=== PATIENT | female | born 1950 | race Caucasian/White ===

== ENCOUNTER 2021-04-15 06:06 | Day surgery (SDC) | payer MEDICARE ==
[2021-04-08 11:10] LABS: BASOPHILS % (AUTO) 0.7 % (0-1); EOSINOPHILS # (AUTO) 0.1 X10'3 (0-0.9); EOSINOPHILS % (AUTO) 2.1 % (0-6); LYMPHOCYTES # (AUTO) 1.4 X10'3 (1.1-4.8); LYMPHOCYTES % (AUTO) 34.4 % (21-51); MEAN CORPUSCULAR HEMOGLOBIN 28.7 PG (27.0-31.0); MEAN CORPUSCULAR HGB CONC 33.2 g/dL (33.0-36.5); MEAN CORPUSCULAR VOLUME 86.6 FL (78-98); MEAN PLATELET VOLUME 7.7 FL (7.4-10.4); MONOCYTES # (AUTO) 0.4 X10'3 (0-0.9); MONOCYTES % (AUTO) 9.3 % (2-12); NEUTROPHILS # (AUTO) 2.2 X10'3 (1.8-7.7); NEUTROPHILS % (AUTO) 53.5 % (42-75); PRE OP HEMATOCRIT 41.9 % (35.0-45.0); PRE OP HEMOGLOBIN 13.9 g/dL (12.0-16.0); PRE OP PLATELET COUNT 339 X10'3 (140-440); RED BLOOD COUNT 4.84 X10'6 (4.20-5.60); RED CELL DISTRIBUTION WIDTH 14.3 % (11.5-14.5)
[2021-04-08 12:00] LABS: ALANINE AMINOTRANSFERASE 31 U/L (12-78); ALBUMIN/GLOBULIN RATIO 1.5 (1.1-1.5); ALKALINE PHOSPHATASE 78 IU/L (46-116); ANION GAP 10 (8-16); ASPARTATE AMINO TRANSFERASE 18 U/L (10-37); BILIRUBIN,TOTAL 0.3 MG/DL (0.1-1.0); BLOOD UREA NITROGEN 11 MG/DL (7-18); CALCIUM 9.3 MG/DL (8.5-10.1); CHLORIDE 107 MMOL/L (99-107); CREATININE 0.55 MG/DL (0.40-0.90); GLUCOSE 89 MG/DL (70-104); POTASSIUM 4.6 MMOL/L (3.5-5.1); SODIUM 144 MMOL/L (135-145); TOTAL CARBON DIOXIDE 26.9 MMOL/L (24-32); TOTAL PROTEIN 6.6 G/DL (6.4-8.2); eGFR > 90 ML/MIN
[~2021-04-15] VITALS: Ht 157.5 cm; Wt 57.0 kg
[2021-04-15] VITALS (11 sets, daily range): BP systolic 117–138; BP diastolic 70–101
[~2021-04-15 06:06] MED LIST: ASCO500W7 PO; ASHW300C; CHOL10006 PO; ESTR0.5T28 PO; FLEC100T35 PO; NORT10CA2 PO; cefazolin/dext.iso 2gm/50ml IV ONE; famotidine 20mg tablet PO ONE; ringers solution, lacted 1,000 ML IV SCH
--- NOTE | 2021-04-15 06:50 | NUR ---
[employer] NOT WORKING FOR [employer]
[2021-04-15] MEDS ORDERED: BUPIVAcaine 0.5% inj/PF 30 ML ONE (07:05)
[2021-04-15] MEDS ORDERED: ondansetron/PF 4mg/2ml inj IV PRN (07:10)
[2021-04-15] MEDS ORDERED: morphine 2 MG/ML inj. syringe IV PRN (07:10)
[2021-04-15] MEDS ORDERED: hydrALAZINE 20mg/ml inj. IV PRN (07:10)
[2021-04-15] MEDS ORDERED: morphine 4 MG/ML inj SYRINge IV PRN (07:10)
[2021-04-15] MEDS ORDERED: labetalol 20mg/4ml (5mg/ml) syringe IV PRN (07:10)
[2021-04-15] MEDS ORDERED: fentaNYL/PF 50MCG/1 ML 2ML syringe IV PRN ×2 (07:10)
[2021-04-15] MEDS ORDERED: ringers solution, lacted 1,000 ML IV SCH (07:10)
[2021-04-15] MEDS ORDERED: LIDOcaine 0.5% (5mg/ml) 50ml vial ONE (08:33)
[2021-04-15] MEDS ORDERED: BUPIVAcaine 0.5% inj/PF 30 ml vial IJ ONE (09:50)
[2021-04-15] MEDS ORDERED: FENTANYL CITRATE/PF 50 MCG/1 ML VIAL ONE (10:00)
[2021-04-15] MEDS ORDERED: midazolam 1 mg/ML 2ml injection ONE (10:00)
--- NOTE | 2021-04-15 10:23 | NUR ---
Received from OR via [facility], accompanied by Anesthesiologist DR FISCHER and report given by Anesthesiologist AND DRUG CLERK. PT DROWSY, DENIES PAIN. RIGHT HAND/WRIST W/SPLINT W/BAIS DRSG COVERING CDI, 4TH AND 5TH FINGERS COVERED W/DRSG/SPLINT. 1,2 3 FINGERS PWD, SUMO WRESTLER 1-2 SECONDS. Addendum: 04/15/21 at 1046 by Norma Garcia RN Amended: Links added.
[2021-04-15] MEDS ORDERED: ondansetron 4mg rapidly disintigrating tab PO ONE (11:35)
--- NOTE | 2021-04-15 12:23 | NUR ---
PT NAUSEA RESOLVED, UP AND ABLE TO AMBULATE SAFELY, D/C INSTRUCTIONS GIVEN AND GONE OVER W/PT WHO VERBALIZED UNDERSTANDING. PT D/CD TO HOME VIA W/C TO PRIVATE VEHICLE W/O INCIDENT. Addendum: 04/15/21 at 1237 by Norma Garcia RN Amended: Links added.
== END 2021-04-15 12:23 | disposition home or self-care (01) ==
LOC: PAS 06:06
PROVIDERS: ATTEND Orthopaedic Surgery Hand Surgery
DX: M72.0 Palmar fascial fibromatosis [Dupuytren] (principal); Z20.822 Contact with and (suspected) exposure to COVID-19; Z79.899 Other long term (current) drug therapy; Z90.710 Acquired absence of both cervix and uterus; Z98.890 Other specified postprocedural states; Z98.41 Cataract extraction status, right eye; Z98.42 Cataract extraction status, left eye
CPT/HCPCS: 26123; 36415; 80053; 82948; 85025; A6222; J2250; J3010; J3490; J7030; J7120; S0020; U0003; U0005; Z7506; Z7512; A4215; A6449; A7000; J0690